=== PATIENT | male | born 1955 | race Caucasian/White ===

== ENCOUNTER 2017-08-25 17:30 | Inpatient (IN) | END 2017-10-26 19:50 | DRG 559 ==

== ENCOUNTER → 2018-06-21 | Outpatient (CLI) | payer MEDICARE, OTHER ==
[~2018-06-21] MED LIST: CHOL100062 PO; DOXY100T2 PO; LOSA100T15 PO; PNEU0.5D IM; TAMS-14 PO; TRAM50TA2 PO
--- NOTE | 2018-06-24 08:15 | RADRPT ---
PROCEDURE: XR LEFT FEMUR. CLINICAL INDICATION: Pain. TECHNIQUE: AP and lateral views of the left femur were obtained. COMPARISON: No prior studies are available for comparison. FINDINGS: The patient has total knee replacement and there is a dislocation at the level of the knee. There is anterior dislocation of the femur and patella with respect to the tibia. No femoral shaft fracture is seen. There is mild preexisting arthrosis of the left hip joint. No evidence for proximal femoral fr acture. No displaced distal femoral fractures seen. IMPRESSION: 1. Anterior dislocation of the femur at the level of the total knee replacement. 2. No displaced fractures seen. RPTAT: XX .Meliton Mackenzie MD, MD Date Time Electronically viewed and signed by .Meliton Mackenzie MD, on 06/24/2018 08:15 .T/
--- NOTE | 2018-06-24 08:16 | RADRPT ---
PROCEDURE: XR LEFT TIBIA AND FIBULA. CLINICAL INDICATION: Pain. Injury. TECHNIQUE: Two views of the left tibia and fibula are available for review. COMPARISON: None available FINDINGS: There is anterior dislocation of the femur at the level of the knee replacement. The patella is dislo cated/subluxed laterally. No tibial or fibular shaft fracture is seen. No bone erosive changes are se en. IMPRESSION: 1. Anterior dislocation of the femur at the level of the knee replacement and the patella is disloca taye/subluxed laterally. 2. No evidence for tibial or fibular fracture. RPTAT: XX .Meliton Mackenzie MD, MD Date Time Electronically viewed and signed by .Meliton Mackenzie MD, on 06/24/2018 08:16 .T/
== END | disposition home or self-care (01) ==
LOC: HKI 14:15
PROVIDERS: ATTEND Orthopaedic Surgery Adult Reconstructive Orthopaedic Surgery
DX: M79.652 Pain in left thigh (principal)
CPT/HCPCS: 73552

== ENCOUNTER 2018-06-29 05:53 | Inpatient (IN) | payer MEDICARE, OTHER ==
[~2018-06-29] VITALS: Ht 182.9 cm; Wt 104.0 kg
[2018-06-29] VITALS (31 sets, daily range): BP systolic 72–137; BP diastolic 44–81; PULSE 63–120; RESP 12–22; Ht 182.9 cm; Wt 104.0 kg
[~2018-06-29 05:53] MED LIST changes: -CHOL100062 PO; -LOSA100T15 PO; -PNEU0.5D IM; -TAMS-14 PO; -TRAM50TA2 PO
[2018-06-29] MEDS ORDERED: TOBRAMYCIN 1.2 GM POWDER ONE (06:53)
[2018-06-29] MEDS ORDERED: MINERAL OIL LIGHT 10 ML VIAL ONE ×2 (06:53→11:19)
[2018-06-29] MEDS ORDERED: METHYLENE BLUE 50 MG/10 ML AMPUL ONE (06:53)
[2018-06-29] MEDS ORDERED: SEVOFLURANE 15 MIN ONE (07:00)
[2018-06-29] MEDS ORDERED: CEFAZOLIN 1 GM INJ ONE (07:00)
[2018-06-29] MEDS ORDERED: ROCURONIUM 50 MG INJ ONE ×2 (07:00→07:26)
[2018-06-29] MEDS ORDERED: LOSA100T15 PO (07:12)
[2018-06-29] MEDS ORDERED: TAMS-14 PO (07:12)
[2018-06-29] MEDS ORDERED: TRAM50TA2 PO (07:12)
[2018-06-29] MEDS ORDERED: CHOL100062 PO (07:13)
[2018-06-29] MEDS ORDERED: PNEU0.5D IM (07:13)
--- NOTE | 2018-06-29 07:21 | HPN ---
Date/Time of Note Date/Time of Note DATE: 06/29/18 TIME: 07:17 Interval H&P Admission Note Pt. seen H&P reviewed: No system changes Patient denies fever, chills, shortness of breath, chest pain, nausea/vomiting, constipation, diarrhea, numbness, and tingling. Reviewed the benefits and risks previously signed on the consent form in clinic. Especially reviewed risks of neurovascular injury given chronic dislocation. This includes need for vascular repair, loss of limb, and . MUSCULOSKELETAL: Left extremity There are superficial scratches over the anterior knee. There is no signs of superficial infection. There is gross deformity of the knee secondary to dislocation. Significant swelling. No significant erythema. Today the patient has slightly decreased sensation to light touch over the sup erficial and deep peroneal nerve distribution. Sensation intact to light touch in a sural, saphenous, medial and lateral plantar nerve distribution. Motor is intact, patient able to dorsiflex and plantarflex ankle and extend and flex great toe. Dorsalis Pedis pulse +2, Brisk capillary refill. Compartments are soft. Calves non-tender to palpation bilaterally. CHERELLE MERRITT MD June 29, 2018 07:21
[2018-06-29] MEDS: LACTATED RINGER'S 1,000 ML IV SCH ×4 (07:26→17:45)
[2018-06-29] MEDS ORDERED: MIDAZOLAM 1 MG/ML 2 ML INJ ONE (07:26)
[2018-06-29] MEDS ORDERED: LIDOCAINE 100 MG SYRINGE ONE (07:26)
[2018-06-29] MEDS ORDERED: FENTAnyl 50 MCG/ML VIAL ONE ×2 (07:26→11:14)
[2018-06-29] MEDS ORDERED: PROPOFOL 20 ML ONE (07:26)
[2018-06-29] MEDS ORDERED: morphine SULFATE/PF (10 MG/10 ML) INJ ONE (07:26)
[2018-06-29] MEDS ORDERED: EPHEDrine 25 MG/5 ML SYG ONE (07:26)
[2018-06-29] MEDS ORDERED: VANCOMYCIN HCL 1.5 GM in SOD CHLORIDE 0.9% 250 ML IVPB SCH (07:30)
[2018-06-29] MEDS ORDERED: TRANEXAMIC ACID 1GM/100ML(PMX) 100 ML AT CLOSING IVPB ONE (07:30)
[2018-06-29] MEDS ORDERED: CELECOXIB 200 MG CAP PO ONE (07:30)
[2018-06-29] MEDS ORDERED: ACETAMINOPHEN 500 MG TAB PO ONE (07:30)
[2018-06-29] MEDS ORDERED: TRANEXAMIC ACID 1GM/100ML(PMX) 100 ML PRE-OP IVPB ONE (07:30)
[2018-06-29] MEDS ORDERED: ONDANSETRON 4 MG INJ IV ONE (07:30)
[2018-06-29] MEDS ORDERED: LANSOPRAZOLE 30 MG CAP PO ONE (07:30)
[2018-06-29] MEDS ORDERED: TRANEXAMIC ACID 1GM/100ML(PMX) 200 ML ONE (08:21)
--- NOTE | 2018-06-29 09:55 | PREAC ---
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) Musculoskeletal: Osteoarthritis Surgery & Anesthesia Issues Significant blood loss, No known issue Meds Anticoagulation: No Beta Kaylen within 24 hr: No Reason Beta Kaylen not given: Other (not ordered by PMD) Reported Medications Pneumoc 13-June Conj-Dip Crm/Pf* (Prevnar 13*) 0.5 Ml Disp.syrin, 0.5 ML IM, SYR 06/29/18 Cholecalciferol* (Vitamin D3*) 1,000 Unit Tablet, 1000 UNIT PO DAILY, TAB 06/29/18 Tramadol HCl (Tramadol HCl) 50 Mg Tablet, 50 MG PO Q6H PRN for PAIN, #120 TAB 06/29/18 Losartan Potassium* (Losartan Potassium*) 100 Mg Tablet, 100 MG PO DAILY, TAB 06/29/18 Tamsulosin Hcl* (Flomax*) 0.4 Mg Cap.er.24h, 0.4 MG PO DAILY, CAP 06/29/18 Discontinued Scripts Doxycycline* (Vibramycin*) 100 Mg Tab, 100 MG PO BID for 90 Days, #1 TAB Prov:YOLANDA SAMAYOA MD 10/26/17 Current Medications Vancomycin HCl 1.5 gm/Sodium Chloride 250 ml @ 83.333 mls/ hr PREOP IVPB Last administered on 06/29/18at 07:26; Admin Dose 83.333 MLS/HR; Start 06/29/18 at 07:30; Stop 06/29/18 at 10:29 Lactated Ringer's 1,000 ml @ 125 mls/hr Q8H IV Last administered on 06/29/18at 07:26; Admin Dose 125 MLS/HR; Start 06/29/18 at 07:30; Stop 06/29/18 at 16:00 Meds reviewed: Yes Allergies Coded Allergies: No Known Allergy (Unverified , 06/29/18) Allergies Reviewed: Yes Labs/Studies Labs Reviewed: Reviewed by anesthesiologist Blood Bank Test 06/29/18 06:16 Antibody Screen NEGATIVE Blood Product Summary Counts Blood Type O POSITIVE Crossmatch Red Blood Cells test: N/A Studies: Other (Baldomero Varela MD cleard pt > Ekg unremarkable) Pre-procedure Exam Last vitals Vital Signs Date Temp Pulse Resp B/P (MAP) Pulse Ox O2 O2 Flow FiO2 Time Delivery Rate 06/29/18 96.9 63 18 137/71 98 Room Air 07:00 (93) Airway: Adequate mouth opening, Adequate thyromental dist Mallampati: Mallampati III Teeth: Abnormal (many missin. slight movemint patient made aware " maybe from patials used " ) Lung: Normal Heart: Normal ASA Physical Status ASA physical status: 3 Emergency: None Planned Anesthetic General/MAC: ETT, Controlled Hypotension (Dr. Hernadez says no touniquet is possible . to minimize bloos loss . Plan to Maintain adequate mean) Nerve block: Other (Spinal narcotic for post op pain) Planned Pain Management Sub-arachniod narcotics (as planned and discussed with Dr. Hernadez IV med if needed), Parenteral pain med Pre-operative Attestations Prior to commencing anesthesia and surgery, the patient was re-evaluated, there was verification of: *The patient's identity *The results of appropriate recent lab work and preoperative vital signs *The above evaluation not changing prior to induction *Anesthetic plan, risk benefits, alternative and complications discussed with patient/family; questions answered; patient/family understands, accepts and wishes to proceed. MIKA FAULKNER MD June 29, 2018 09:31
[2018-06-29] MEDS: VANCOMYCIN 1 GM INJ ONE ×2 (10:21→11:59)
[2018-06-29] MEDS: TOBRAMYCIN 1.2 GM POWDER ONE ×2 (10:22→11:59)
[2018-06-29] MEDS ORDERED: MIDAZOLAM 1 MG/ML 2 ML INJ IV PRN ×2 (10:30→11:00)
[2018-06-29] MEDS ORDERED: EPHEDrine 25 MG/5 ML SYG IV PRN (10:30)
[2018-06-29] MEDS ORDERED: ALBUTEROL 0.083% (NEB) 2.5 MG/3 ML AMP HHN PRN (10:30)
[2018-06-29] MEDS ORDERED: LABETALOL HCL 20MG INJ IV PRN (10:30)
[2018-06-29] MEDS ORDERED: morphine 2 MG INJ IV PRN ×2 (10:30→11:00)
[2018-06-29] MEDS ORDERED: ONDANSETRON 4 MG INJ IV PRN ×2 (10:30→11:00)
[2018-06-29] MEDS ORDERED: DIPHENHYDRAMINE 50 MG INJ IV PRN ×3 (10:30→14:30)
[2018-06-29] MEDS ORDERED: ALBUMIN HUMAN 5% 250 ML IV PRN (10:30)
[2018-06-29] MEDS ORDERED: MEPERIDINE 25 MG INJ IV PRN (10:30)
[2018-06-29] MEDS ORDERED: hydrALAzine 20 MG INJ IV PRN (10:30)
[2018-06-29] MEDS ORDERED: FENTAnyl 50 MCG/ML VIAL IV PRN (10:30)
[2018-06-29] MEDS ORDERED: METOCLOPRAMIDE 10 MG INJ IV PRN (10:30)
[2018-06-29] MEDS ORDERED: HYDROmorphONE 1 MG/5 ML IV SYRINGE IV PRN ×3 (10:30)
[2018-06-29] MEDS ORDERED: LEVALBUTEROL (NEB) 0.63 MG/3 ML AMP HHN PRN (10:30)
[2018-06-29] MEDS ORDERED: ONDANSETRON 4 MG INJ ONE (13:23)
[2018-06-29] MEDS ORDERED: DEXAMETHASONE 4 MG/ML 5 ML INJ ONE (13:23)
[2018-06-29] MEDS ORDERED: ESMOLOL 10 ML ONE (13:34)
[2018-06-29] MEDS ORDERED: BETHANECHOL 25 MG TAB PO PRN (14:30)
[2018-06-29] MEDS ORDERED: DOCUSATE SODIUM 100 MG CAP PO ONE (14:30)
[2018-06-29] MEDS ORDERED: NACL 0.9% 3 ML SYG IV SCH (14:30)
[2018-06-29] MEDS ORDERED: SENNA/DOCUSATE NA (8.6MG/50MG) TAB PO PRN (14:30)
[2018-06-29] MEDS ORDERED: NA PHOSPHATE/BIPHOS 133 ML ENEMA PR PRN (14:30)
[2018-06-29] MEDS ORDERED: BISACODYL 10 MG SUPP PR PRN (14:30)
[2018-06-29] MEDS ORDERED: NALOXONE (0.4 MG/ML) INJ IV PRN (14:30)
[2018-06-29] MEDS ORDERED: MAGNESIUM HYDROXIDE 30ML CUP PO PRN (14:30)
[2018-06-29] MEDS ORDERED: HYDROmorphONE 1 MG/ML SYG IV PRN (14:30)
[2018-06-29] MEDS ORDERED: oxyCODONE 5 MG TAB PO PRN (14:30)
--- NOTE | 2018-06-29 14:39 | PAC ---
Date/Time of Note Date/Time of Note DATE: 06/29/18 TIME: 14:38 Post-Anesthesia Notes Post-Anesthesia Note Last documented vital signs Vital Signs Date Temp Pulse Resp B/P (MAP) Pulse Ox O2 O2 Flow FiO2 Time Delivery Rate 06/29/18 98.5 14:10 06/29/18 63 18 137/71 98 Room Air 07:00 (93) Activity: WNL Respiratory function: WNL Cardiovascular function: WNL Mental status: Baseline Pain reasonably controlled: Yes Hydration appropriate: Yes Nausea/Vomiting absent: Yes MIKA FAULKNER MD June 29, 2018 14:39
[2018-06-29] MEDS ORDERED: ALBUMIN HUMAN 5% 250 ML IV ONE (15:00)
[2018-06-29] MEDS ORDERED: SOD CHLORIDE 0.9% 500 ML IV ONE (16:30)
--- NOTE | 2018-06-29 16:37 | HP ---
Date/Time of Note Date/Time of Note DATE: 06/29/18 TIME: 16:33 Assessment/Plan VTE Prophylaxis Risk score (from Ns)>0 risk: 2 SCD applied (from Ns): Yes Pharmacological prophylaxis: NA/contraindicated Pharm contraindication: surgical contra Lines/Catheters IV Catheter Type (from Nrsg): Peripheral IV Assessment/Plan Hospital Course 1. History of left knee replacement with subsequent septic knee status post total revision postop day 0 Broad-spectrum coverage with vancomycin and Zosyn ID consultation tomorrow per Ortho Pain control 2. Hypertension Continue home meds 3. BPH Continue home meds 4. History of debility Patient resides in a skilled facility Prophylaxis: Per Ortho Result Diagram: 06/29/18 1532 Results 24hrs Laboratory Tests Test 06/29/18 06:16 06/29/18 15:32 Erythrocyte Sedimentation Rate 9 C-Reactive Protein 0.8 Hemoglobin 11.3 L Hematocrit 35.2 L HPI/ROS Admit Date/Time Admit Date/Time June 29, 2018 at 05:53 Hx of Present Illness Patient is 63-year-old male with a history of BPH, hypertension, debility and left knee replacement with subsequent left knee septic joint. Patient was hospitalized here in the past and was treated conservatively with antibiotics and completed 4-week course. At that time ID recommended lifelong suppression with doxycycline twice daily. Patient was subsequently arranged for outpatient follow-up with Ortho has now undergone left knee revision. Patient has no compl aints at this time. ROS Constitutional: no complaints, improved Eyes: no complaints ENT: no complaints Respiratory: no complaints Cardiovascular: no complaints Gastrointestinal: no complaints Genitourinary: no complaints Musculoskeletal: no complaints Skin: no complaints Neurologic: no complaints Endocrine: no complaints Lymphatic: no complaints Psychological: no complaints, nl mood/affect Immunologic: no complaints PMH/Family/Social Past Medical History As per HPI Medications Current Medications Morphine Sulfate (morphine) 2 mg PACU PRN IV PAIN LEVEL 1-3; Start 06/29/18 at 10:30; Stop 06/29/18 at 17:00 Hydromorphone HCl (Dilaudid) 0.2 mg PACU PRN IV MILD PAIN 1-3; Start 06/29/18 at 10:30; Stop 06/29/18 at 17:00 Hydromorphone HCl (Dilaudid) 0.4 mg PACU PRN IV MOD PAIN 4-6; Start 06/29/18 at 10:30; Stop 06/29/18 at 17:00 Hydromorphone HCl (Dilaudid) 0.6 mg PACU PRN IV SEVERE PAIN 7-10 Last a dministered on 06/29/18at 14:36; Admin Dose 0.6 MG; Start 06/29/18 at 10:30; Stop 06/29/18 at 17:00 Fentanyl (Sublimaze) 50 mcg PACU ORDER PRN IV MOD PAIN 4-6 Last administered on 06/29/18at 14:36; Admin Dose 50 MCG; Start 06/29/18 at 10:30; Stop 06/29/18 at 17:00 Ondansetron HCl (Zofran Inj) 4 mg PACU ORDER PRN IV NAUSEA/VOMITING Last administered on 06/29/18at 14:35; Admin Dose 4 MG; Start 06/29/18 at 10:30; Stop 06/29/18 at 17:00 Metoclopramide HCl (Reglan) 10 mg PACU ORDER PRN IV NAUSEA/VOMITING; Start 06/29/18 at 10:30; Stop 06/29/18 at 17:00 Labetalol HCl (Labetalol) 5 mg PACU ORDER PRN IV HIGH BLOOD PRESSURE; Start 06/29/18 at 10:30; Stop 06/29/18 at 17:00 Hydralazine HCl (Apresoline) 5 mg PACU ORDER PRN IV HIGH BLOOD PRESSURE; Start 06/29/18 at 10:30; Stop 06/29/18 at 17:00 Ephedrine Sulfate 5 mg PACU ORDER PRN IV BLOOD PRESSURE SUPPORT Last administered on 06/29/18at 14:49; Admin Dose 5 MG; Start 06/29/18 at 10:30; Stop 06/29/18 at 17:00 Albumin Human 250 ml @ 750 mls/hr PACU ORDER PRN IV BP SUPPORT Last administered on 06/29/18at 14:51; Admin Dose 750 MLS/HR; Start 06/29/18 at 10:30; Stop 06/29/18 at 17:00 Albuterol (Proventil 0.083% (Neb)) 2.5 mg PACU ORDER PRN HHN .WHEEZING; Start 06/29/18 at 10:30; Stop 06/29/18 at 17:00 Levalbuterol (Xopenex Neb) 0.63 mg PACU ORDER PRN HHN .WHEEZING; Start 06/29/18 at 10:30; Stop 06/29/18 at 17:00 Meperidine HCl (Demerol) 25 mg PACU ORDER PRN IV .RIGORS; Start 06/29/18 at 10:30; Stop 06/29/18 at 17:00 Diphenhydramine HCl (Benadryl) 25 mg PACU ORDER PRN IV .PRURITUS Last administered on 06/29/18at 14:39; Admin Dose 25 MG; Start 06/29/18 at 10:30; Stop 06/29/18 at 17:00 Midazolam HCl (Versed) 0.5 mg PACU ORDER PRN IV .ANXIETY; Start 06/29/18 at 10:30; Stop 06/29/18 at 17:00 Morphine Sulfate (morphine) 1 mg Q30MIN PRN IV SEVERE PAIN LEVEL 7-10; Start 06/29/18 at 11:00 Diphenhydramine HCl (Benadryl) 25 mg Q4H PRN IV PRURITUS; Start 06/29/18 at 11:00 Ondansetron HCl (Zofran Inj) 4 mg Q6H PRN IV NAUSEA AND/OR VOMITING; Start 06/29/18 at 11:00 Lactated Ringer's 1,000 ml @ 80 mls/hr [id number] IV Last administered on 06/29/18at 15:59; Admin Dose 80 MLS/HR; Start 06/29/18 at 14:07 IV Flush (NS 3 ml) 3 ml PER PROTOCOL IV ; Start 06/29/18 at 14:30 Oxycodone HCl (Roxicodone) 15 mg Q4H PRN PO .PAIN; Start 06/29/18 at 14:30 Oxycodone HCl (Roxicodone) 10 mg Q4H PRN PO .PAIN; Start 06/29/18 at 14:30 Oxycodone HCl (Roxicodone) 5 mg Q4H PRN PO .PAIN; Start 06/29/18 at 14:30 Hydromorphone HCl (Dilaudid) 1 mg Q3H PRN IV .BREAKTHROUGH PAIN; Start 06/29/18 at 14:30 Acetaminophen (Tylenol Tab) 1,000 mg Q8 PO ; Start 06/29/18 at 22:00 Ondansetron HCl (Zofran Inj) 4 mg Q4H PRN IV NAUSEA/VOMITING; Start 06/30/18 at 14:30 Vancomycin HCl 250 ml @ 125 mls/hr Q12H IVPB ; Start 06/29/18 at 18:00 Gabapentin (Neurontin) 300 mg QHS PO ; Start 06/29/18 at 21:00 Pantoprazole (Protonix Tab) 40 mg DAILY@06 PO ; Start 07/01/18 at 06:00 Docusate Sodium (Colace) 200 mg BID PO ; Start 06/30/18 at 09:00; Stop 07/03/18 at 08:59 Simethicone (Mylicon) 80 mg TID PRN PO .GAS; Start 06/29/18 at 14:30 Senna/Docusate Sodium (Senokot-S) 2 tab BID PRN PO .CONSTIPATION; Start 06/29/18 at 14:30 Magnesium Hydroxide (Milk Of Mag) 30 ml HS PRN PO .CONSTIPATION; Start 06/29/18 at 14:30 Bisacodyl (Dulcolax Supp) 10 mg DAILY PRN MT .CONSTIPATION; Start 06/29/18 at 14:30 Sodium Biphosphate/ Sodium Phosphate (Fleet Enema) 133 ml DAILY PRN MT .CON STIPATION; Start 06/29/18 at 14:30 Diphenhydramine HCl (Benadryl) 25 mg Q4H PRN IV .ITCHING; Start 06/29/18 at 14:30 Naloxone HCl (Narcan) 0.2 mg Q2M PRN IV .RESP RATE; Start 06/29/18 at 14:30 Bethanechol Chloride (Urecholine) 25 mg URINARY CATH D/C PRN PO UNABLE TO VOID; Start 06/29/18 at 14:30 Aspirin (Halfprin) 81 mg BID PO ; Start 06/30/18 at 09:00 Piperacillin Sod/ Tazobactam Sod 100 ml @ 200 mls/hr Q8 IVPB ; Start 06/29/18 at 22:00 Midazolam HCl (Versed) 2 mg ONCE PRN IV if anxious; Start 06/29/18 at 11:00; Stop 06/30/18 at 10:59 Sodium Chloride 500 ml @ 500 mls/hr Q1H ONCE IV ; Start 06/29/18 at 16:30; Stop 06/29/18 at 17:29 Coded Allergies: No Known Allergy (Unverified , 06/29/18) Past Surgical History Left knee surgery Family History Significant Family History: no pertinent family hx, other Social History Alcohol Use: rarely Smoking Status: Former smoker Drug Use: none Exam/Review of Systems Vital Signs Vitals Vital Signs Date Temp Pulse Resp B/P (MAP) Pulse Ox O2 O2 Flow FiO2 Time Delivery Rate 06/29/18 Nasal 2.0 15:11 Cannula 06/29/18 104 14 93/65 (74) 100 15:08 06/29/18 98.5 14:10 Intake and Output 06/28/18 06/28/18 06/29/18 1515:00 23:00 07:00 IntakeIntake Total 1200 ml BalanceBalance 1200 ml Exam Constitutional: alert, oriented Respiratory: clear to auscultation Cardiovascular: regular rate and rhythm Gastrointestinal: soft; No distended Musculoskeletal: No nl extremities to inspection CHRISTIANO RAYGOZA June 29, 2018 16:37
--- NOTE | 2018-06-29 17:35 | OPR ---
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 Radical irrigation and debridement 25 x 20 cm. Debridement of skin, subcutan eous tissue, muscle, fascia, bone. Placement of static antibiotic spacer Placement of bioabsorbable antibiotic beads Application of negative pressure dressing. Surgeon see signature line Flare Stitcher joyce encinas Anesthesia Type: general, spinal Estimated Blood Loss: other (400-600 mL) Transfusion none Specimen All specimens sent for aerobic, anaerobic, fungal, and AFB. All cultures will be held for at least 2 weeks. 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 His total knee arthroplasty was done in December 2016. Several months after that he began having pain and difficulty with his knee. Per outside records he had a significant deformity and inability to bear weight at least one year ago. He was seen at [facility] in August 2017 where he was diagnosed with a chronic infected dislocated total knee arthroplasty. At that time it was not involved with his care and he was discharged to follow up with an appropriate surgeon. The patient was discharged on IV antibiotics and then transition to oral doxycycline. The patient then presented to my clinic a few months ago where I saw him for the first time. I discussed multiple treatment options with him including continued chronic suppression and use a wheelchair, stage I revision with static spacer, above- knee amputation. I recommended a stage I revision with static spacer. At that time the patient had significant dental decay and required multiple extractions prior to planned stage I revision. Once that was complete the patient return to my clinic to plan for the surgery. A lengthy discussion ensued, where the operative procedure was explained using diagrams and or three-dimensional models. The rehabilitation, the potential risks, benefits and alternatives were discussed at length. Specific risks discussed included but were not limited to excessive blood loss and the need for transfusion and therefore the risk of transmissible disease or transfusion reaction, deep infection and the potential need for repetitive debridements, implant removal, long-term antibiotic therapy, possibly requiring deep venous access, extensor mechanism complications, including subluxation or dislocation, disruption of the quadriceps or patellar tendon, fracture of the patella or avulsion of the tibial tuberosity, femoral, tibial or fibular fracture and the need for further surgery for fixation, neurovascular injury with temporary or permanent numbness, tingling, weakness or paralysis, arterial injury requiring surgery including possible amputation, deep venous thrombosis, pulmonary embolism and , persistent pain, weakness, or limp, late aseptic loosening and the need for revision, polyethylene wear-induced osteolysis and related problems, post-operative stiffness requiring closed manipulation, and finally, a wide variety of unanticipated medical problems. I especially stressed to the patient he was a high risk for neurovascular injury given his chronic disl ocation. I also discussed with him that performing a stage I revision did not guarantee by any means that he would be a candidate for a second stage revision. Most likely if he was to have a second stage revision he would go on to a fusion. The opportunity to ask questions and address any concerns was provided. He understood and agreed to proceed with the surgery. Procedure in detail: The patient was brought to the operating room. He was transferred from the hospital bed to the operating table in supine position. All bony problems well padded. Patient was then given a spinal and intubated by anesthesia. At this time a thorough vascular exam was performed. The dorsalis pedis pulse was palpable with 2+ pulse. Both the dorsalis pedis and posterior tibialis pulse was triphasic on Doppler examination. A timeout was performed confirming the patient's name, medical record number, diagnosis, procedure to be performed, and laterality of procedure. At this time the patient was fully paralyzed by anesthesia. An attempted reduction of the dislocated total knee arthroplasty was performed under fluoroscopy. After multiple attempts including extended periods of manual traction the reduction failed. At this time it was decided the best way to proceed was to begin the surgery. The left lower extremities prepped and draped in normal sterile fashion. A tourniquet was placed prior to draping. This was not inflated at any time during the case. The knee was flexed to about 60 degrees. A large bump was placed under the proximal tibia and knee to prevent further displacement of the dislocated knee. The previous incision was utilized extending both proximally and distally several centimeters. Full-thickness skin flaps were developed over the extensor mechanism. The patella was dislocated laterally. The edges of the patella was palpated and marked out. At this time attempted aspiration of the joint was performed this was a dry tap. Therefore a medial parapatellar arthrotomy was performed. Secondary to significant deformation of the joint and tissues care was taken not to disrupt the extensor mechanism. Once the joint was entered there was a small to moderate amount of fluid. No grossly purulent fluid. The tissues appeared quite clean however were hyperemic. The tibia was 100% dislocated posteriorly and it was shortened approximately several centimeters. The entire previous joint space was filled with fibrous scar. The fibrous scar was carefully excised. Care was taken to slowly release the joint to allow reduction. Extreme care was taken posteriorly as the popliteal artery was likely to be scarred in tissue and not in its normal anatomical position secondary to chronic dislocation. At this time both the medial and lateral gutters were debrided and large amounts of fibrous scar tissue was excised both medially and laterally. Synovial tissue was sent for culture. There is no andrew ss purulence. There is no grossly necrotic tissue. Once the joint was free and able to be reduced the knee was further flexed in order to expose and visualize the implant cement and bone interface of the femoral component. This was then disrupted with a microsagittal saw followed by flexible osteotomes. This was then removed with ease with the Fluid femoral impactor. There was minimal bone loss. Superficial femoral tissue was sent for culture. Attention then turned towards the tibial side. Care was taken with a blunt retractor placed posterior to the tibia to translated anteriorly. The polyethylene was easily explanted with an osteotome. The bone cement interface was disrupted with a microsagittal saw followed by flexible osteotome. The Kelli impactor was used to explant the tibial tray. This was done with minimal bone loss. Superficial tibial tissue was sent for culture. At this point further debridement of the entire knee joint was performed using both sharp excision as well as the versa jet. Once this was completed attention turned towards the femoral and tibial canals. Deep culture from the femoral canal was sent for culture. The intramedullary canals were sequentially reamed up to a size 15 with a depth of at least 175 mm. At this time the joint was closely irrigated with over 9 L of normal saline as well as hydrogen peroxide. On the back table 2 packs of polymethyl methacrylate was mixed with 4 g of vancomycin and 4.8 g of tobramycin. This was also mixed with couple drops of methylene blue. This was placed in a cement gun. A prepared 40 [place] chest tube with sterile mineral oil was on the back table. Cement was pressurized in the chest tube a 7 x 300 mm [place] humeral nail was placed within the chest tube. An attempt was made to have the nail centralized. This was done by along the chest tube constantly until the cement hardened. Once cement was hardened a 10 blade was used to cut open the chest tube longitudinally. The nail came out easily. The midpoint of the nail was marked with a marking pen. At this time the nail was then inserted up the femoral canal. And the knee joint was reduced and the antibiotic coated nail was then placed within the tibia stopping at the previously marked midpoint of the nail. The knee was held in full extension and in neutral mechanical alignment. At this time 2 more packs of polymethyl methacrylate with 6 g of vancomycin and 7.2 g of tobramycin and several drops of methylene blue was mixed. Once at the proper consistency this was placed in both the metaphysis of the femur and tibia and the remainder was used to make a spacer block in the joint space. The knee was held in full extension and a neutral mechanical alignment during this process. The cement hardened. Of note in total there was approximately 20 mL of stimulan calcium sulfate beads placed with in the intramedullary canals and the affected joint space. This contained 2 g of vancomycin and 2.4 g of tobramycin. The patella was still significantly lateralized. It was felt that would be better to have the patella essentials possible for future reconstruction as well as comfort for the patient. Therefore a lateral release was performed. This significantly improved the position of the patella. A medium Hemovac drain was placed exiting laterally. The arthrotomy was closed with #1 strata fix. The subcutaneous tissues were closed with 2-0 PDS in simple interrupted fashion. Skin was closed with kamla. A Jaci wound VAC was placed over the wound. The leg was wrapped in soft roll and bios and a Polar Care pack. The knee was placed in a knee immobilizer. Disposition: Patient was extubated and transferred to PACU in stable condition. He will continue to receive vancomycin and Zosyn [id number] until cultures return. At that time and blocks will be tailored towards cultures. Infectious disease will be consulted. He will be allowed to partially weight-bear on his left lower extremity. No flexion is allowed as he is essentially fused. He is to wear the knee immobilizer except for dressing changes and hygiene. He will be on DVT prophylaxis aspirin 81 mg twice a day for 6 weeks. He will likely be in the hospital for 5 days waiting for cultures. CHERELLE MERRITT MD June 29, 2018 16:58
[2018-06-29] MEDS: VANCOMYCIN 1 GM (PMX) 250 ML IVPB SCH (18:32)
[2018-06-29] MEDS: oxyCODONE 5 MG TAB PO PRN (18:48)
[2018-06-29] MEDS: TAMSULOSIN (SR) 0.4 MG CAP PO SCH (21:48)
[2018-06-29] MEDS: GABAPENTIN 300 MG CAP PO SCH (21:48)
[2018-06-29] MEDS: PIPER-TAZO 3.375 GM IV (PMX) 100 ML IVPB SCH (21:48)
[2018-06-29] MEDS: ACETAMINOPHEN 500 MG TAB PO SCH (21:49)
[2018-06-29] MEDS ORDERED: CEPASTAT LOZENGE MT PRN (23:30)
[2018-06-30] VITALS (15 sets, daily range): BP systolic 81–124; BP diastolic 42–58; PULSE 78–99; RESP 17–18
[2018-06-30] MEDS: PIPER-TAZO 3.375 GM IV (PMX) 100 ML IVPB SCH ×4 (06:02→22:48)
[2018-06-30] MEDS: ACETAMINOPHEN 500 MG TAB PO SCH ×3 (06:02→22:47)
[2018-06-30] MEDS: VANCOMYCIN 1 GM (PMX) 250 ML IVPB SCH ×2 (06:50→18:12)
[2018-06-30] MEDS: DOCUSATE SODIUM 100 MG CAP PO SCH ×2 (08:14→20:12)
[2018-06-30] MEDS: CHOLECALCIFEROL 1,000 UNIT TAB PO SCH (08:14)
[2018-06-30] MEDS: oxyCODONE 5 MG TAB PO PRN ×2 (08:14→20:13)
[2018-06-30] MEDS: ASPIRIN (EC) 81 MG TAB PO SCH ×2 (08:14→20:12)
[2018-06-30] MEDS: LOSARTAN 50 MG TAB PO SCH (08:15)
--- NOTE | 2018-06-30 08:39 | PN ---
Date/Time of Note Date/Time of Note DATE: 06/30/18 TIME: 08:36 Assessment/Plan Lines/Catheters IV Catheter Type (from Nrsg): Peripheral IV Bobo in Place (from Nrs): Yes Assessment/Plan Chief Complaint/Hosp Course POD#1 s/p stage I revision for chronically dislocated infected left patient has a static spacer TKA. Patient will need 6 weeks of IV antibiotics and a PICC line. -Post op H&H stable -VAC drain: Measurable every 8 hours. Call if over 200 mL's per shift -PT/OT -Joints pain control protocol -DVT prophylaxis: SCD's, [] -Weight bearing status: partial weightbearing -Knee immobilizer at all times except for dressing changes and hygiene. No rang e of motion of the knee -Post-op XR ordered -Abx: Continue vancomycin and Zosyn until cultures return -Will consult infectious disease -Diet: ADAT -Bobo: DC today -Discharge planning consult Planned Discharge Date: [] Discharge to [] Subjective 24 Hr Interval Summary Patient doing well No acute events overnight Pain is well controlled Exam/Review of Systems Vital Signs Vitals Vital Signs Date Temp Pulse Resp B/P (MAP) Pulse Ox O2 O2 Flow FiO2 Time Delivery Rate 06/30/18 98.1 88 17 114/58 97 02:15 (76) 06/29/18 Nasal 3.0 20:00 Cannula Intake and Output 06/29/18 06/29/18 06/30/18 1515:00 23:00 07:00 IntakeIntake Total 100 ml 1280 ml 700 ml OutputOutput Total 600 ml 530 ml 1890 ml BalanceBalance -500 ml 750 ml -1190 ml Exam Free Text/Dictation Left lower extremity: Hemovac drain to self suction. Knee immobilizer in place Dressing: clean, dry, and intact, no erythema Sensation intact to light touch in a sural, saphenous, deep peroneal, superficial peroneal, medial and lateral plantar nerve distribution. Motor is intact, patient able to dorsiflex and plantarflex ankle and extend and flex great toe. Dorsalis Pedis pulse +2, Brisk capillary refill. Compartments are soft. Calves non-tender to palpation bilaterally. Results Result Diagram: 06/30/18 0447 06/30/18 0447 CHERELLE MERRITT MD June 30, 2018 08:39
--- NOTE | 2018-06-30 12:27 | PN ---
Date/Time of Note Date/Time of Note DATE: 06/30/18 TIME: 12:26 Assessment/Plan VTE Prophylaxis Risk score (from Ns)>0 risk: 13 SCD applied (from Nsg): Yes Pharmacological prophylaxis: other Lines/Catheters IV Catheter Type (from Nrsg): Peripheral IV Assessment/Plan Hospital Course 1. History of left knee replacement with subsequent septic knee status post total revision postop day 1 Broad-spectrum coverage with vancomycin and Zosyn ID consultation per Ortho Pain control PT per Ortho 2. Hypertension Continue home meds 3. BPH Continue home meds 4. History of debility Patient resides in a skilled facility Prophylaxis: Aspirin Result Diagram: 06/30/18 0447 06/30/187 Results 24hrs Laboratory Tests Test 06/29/18 15:32 06/30/18 04:47 06/30/18 06:50 Hemoglobin 11.3 L 9.2 L Hematocrit 35.2 L 28.6 L White Blood Count 13.6 #H Red Blood Count 3.11 #L Mean Corpuscular Volume 92.0 Mean Corpuscular Hemoglobin 29.6 Mean Corpuscular 32.2 Hemoglobin Concent Red Cell Distribution Width 13.5 Platelet Count 191 # Mean Platelet Volume 9.8 Immature Granulocytes % 0.600 H Neutrophils % 82.6 H Lymphocytes % 6.6 L Monocytes % 10.1 Eosinophils % 0.0 Basophils % 0.1 Nucleated Red Blood Cells % 0.0 Immature Granulocytes # 0.080 H Neutrophils # 11.2 H Lymphocytes # 0.9 Monocytes # 1.4 H Eosinophils # 0.0 Basophils # 0.0 Nucleated Red Blood Cells # 0.0 Sodium Level 137 Potassium Level 4.9 Chloride Level 104 Carbon Dioxide Level 26 Anion Gap 7 Blood Urea Nitrogen 12 Creatinine 0.73 Est Glomerular Filtrat > 60 Rate mL/min Glucose Level 125 Calcium Level 8.6 Lab Scanned Report REFERENCE LAB Subjective 24 Hr Interval Summary Constitutional: no complaints Exam/Review of Systems Exam Vitals Vital Signs Date Temp Pulse Resp B/P (MAP) Pulse Ox O2 O2 Flow FiO2 Time Delivery Rate 06/30/18 98.0 99 18 104/50 99 Nasal 2.0 08:42 (68) Cannula Intake and Output 06/29/18 06/29/18 06/30/18 1414:59 22:59 06:59 IntakeIntake Total 100 ml 1280 ml 700 ml OutputOutput Total 600 ml 530 ml 1890 ml BalanceBalance -500 ml 750 ml -1190 ml Constitutional: alert, oriented Respiratory: clear to auscultation Cardiovascular: regular rate and rhythm Gastrointestinal: soft; No distended Musculoskeletal: No nl extremities to inspection Results Results 24hrs Laboratory Tests Test 06/29/18 15:32 06/30/18 04:47 06/30/18 06:50 Hemoglobin 11.3 L 9.2 L Hematocrit 35.2 L 28.6 L White Blood Count 13.6 #H Red Blood Count 3.11 #L Mean Corpuscular Volume 92.0 Mean Corpuscular Hemoglobin 29.6 Mean Corpuscular 32.2 Hemoglobin Concent Red Cell Distribution Width 13.5 Platelet Count 191 # Mean Platelet Volume 9.8 Immature Granulocytes % 0.600 H Neutrophils % 82.6 H Lymphocytes % 6.6 L Monocytes % 10.1 Eosinophils % 0.0 Basophils % 0.1 Nucleated Red Blood Cells % 0.0 Immature Granulocytes # 0.080 H Neutrophils # 11.2 H Lymphocytes # 0.9 Monocytes # 1.4 H Eosinophils # 0.0 Basophils # 0.0 Nucleated Red Blood Cells # 0.0 Sodium Level 137 Potassium Level 4.9 Chloride Level 104 Carbon Dioxide Level 26 Anion Gap 7 Blood Urea Nitrogen 12 Creatinine 0.73 Est Glomerular Filtrat > 60 Rate mL/min Glucose Level 125 Calcium Level 8.6 Lab Scanned Report REFERENCE LAB Medications Medication Current Medications Morphine Sulfate (morphine) 1 mg Q30MIN PRN IV SEVERE PAIN LEVEL 7-10; Start 06/29/18 at 11:00 Diphenhydramine HCl (Benadryl) 25 mg Q4H PRN IV PRURITUS; Start 06/29/18 at 11:00 Ondansetron HCl (Zofran Inj) 4 mg Q6H PRN IV NAUSEA AND/OR VOMITING; Start 06/29/18 at 11:00 Lactated Ringer's 1,000 ml @ 80 mls/hr [id number] IV Last administered on 06/29/18at 17:45; Admin Dose 80 MLS/HR; Start 06/29/18 at 14:07 IV Flush (NS 3 ml) 3 ml PER PROTOCOL IV ; Start 06/29/18 at 14:30 Oxycodone HCl (Roxicodone) 15 mg Q4H PRN PO .PAIN; Start 06/29/18 at 14:30 Oxycodone HCl (Roxicodone) 10 mg Q4H PRN PO .PAIN Last administered on 06/29/18at 18:48; Admin Dose 10 MG; Start 06/29/18 at 14:30 Oxycodone HCl (Roxicodone) 5 mg Q4H PRN PO .PAIN Last administered on 06/30/18at 08:14; Admin Dose 5 MG; Start 06/29/18 at 14:30 Hydromorphone HCl (Dilaudid) 1 mg Q3H PRN IV .BREAKTHROUGH PAIN; Start 06/29/18 at 14:30 Acetaminophen (Tylenol Tab) 1,000 mg Q8 PO Last administered on 06/30/18at 06:02; Admin Dose 1,000 MG; Start 06/29/18 at 22:00 Ondansetron HCl (Zofran Inj) 4 mg Q4H PRN IV NAUSEA/VOMITING; Start 06/30/18 at 14:30 Vancomycin HCl 250 ml @ 125 mls/hr Q12H IVPB Last administered on 06/30/18at 06:50; Admin Dose 125 MLS/HR; Start 06/29/18 at 18:00 Gabapentin (Neurontin) 300 mg QHS PO Last administered on 06/29/18at 21:48; Admin Dose 300 MG; Start 06/29/18 at 21:00 Pantoprazole (Protonix Tab) 40 mg DAILY@06 PO ; Start 07/01/18 at 06:00 Docusate Sodium (Colace) 200 mg BID PO Last administered on 06/30/18at 08:14; Admin Dose 200 MG; Start 06/30/18 at 09:00; Stop 07/03/18 at 08:59 Simethicone (Mylicon) 80 mg TID PRN PO .GAS; Start 06/29/18 at 14:30 Senna/Docusate Sodium (Senokot-S) 2 tab BID PRN PO .CONSTIPATION; Start 06/29/18 at 14:30 Magnesium Hydroxide (Milk Of Mag) 30 ml HS PRN PO .CONSTIPATION; Start 06/29/18 at 14:30 Bisacodyl (Dulcolax Supp) 10 mg DAILY PRN NV .CONSTIPATION; Start 06/29/18 at 14:30 Sodium Biphosphate/ Sodium Phosphate (Fleet Enema) 133 ml DAILY PRN NV .CONSTI PATION; Start 06/29/18 at 14:30 Diphenhydramine HCl (Benadryl) 25 mg Q4H PRN IV .ITCHING; Start 06/29/18 at 14:30 Naloxone HCl (Narcan) 0.2 mg Q2M PRN IV .RESP RATE; Start 06/29/18 at 14:30 Bethanechol Chloride (Urecholine) 25 mg URINARY CATH D/C PRN PO UNABLE TO VOID Last administered on 06/30/18 06:02; Admin Dose 25 MG; Start 06/29/18 at 14:30 Aspirin (Halfprin) 81 mg BID PO Last administered on 06/30/18 08:14; Admin Dose 81 MG; Start 06/30/18 at 09:00 Piperacillin Sod/ Tazobactam Sod 100 ml @ 200 mls/hr Q8 IVPB Last administered on 06/30/18 06:02; Admin Dose 200 MLS/HR; Start 06/29/18 at 22:00 Cholecalciferol (Vitamin D) 1,000 unit DAILY PO Last administered on 06/30/18 08:14; Admin Dose 1,000 UNIT; Start 06/30/18 at 09:00 Losartan Potassium (Cozaar) 100 mg DAILY PO Last administered on 06/30/18 08:15; Admin Dose 100 MG; Start 06/30/18 at 09:00 Tamsulosin HCl (Flomax) 0.4 mg DAILY@2100 PO Last administered on 06/29/18at 21:48; Admin Dose 0.4 MG; Start 06/29/18 at 21:00 Phenol (Cepastat Lozenge) 1 lozenge Q1H PRN MT SORE THROAT; Start 06/29/18 at 23:30 CHRISTIANO RAYGOZA June 30, 2018 12:27
[2018-06-30] MEDS ORDERED: ONDANSETRON 4 MG INJ IV PRN (14:30)
[2018-06-30] MEDS ORDERED: SOD CHLORIDE 0.9% 500 ML IV ONE (14:30)
[2018-06-30] MEDS: LACTATED RINGER'S 1,000 ML IV SCH (15:07)
[2018-06-30] MEDS ORDERED: SODIUM CHLORIDE 0.9% 1L BAG IV* STA (15:38)
[2018-06-30] MEDS: TAMSULOSIN (SR) 0.4 MG CAP PO SCH (20:12)
[2018-06-30] MEDS: GABAPENTIN 300 MG CAP PO SCH (20:12)
[2018-07-01] MEDS: LACTATED RINGER'S 1,000 ML IV SCH ×2 (01:10→16:07)
[2018-07-01 02:14] VITALS: BP 101/56; PULSE 84; RESP 18
[2018-07-01] MEDS: ACETAMINOPHEN 500 MG TAB PO SCH ×3 (06:08→21:59)
[2018-07-01] MEDS: PIPER-TAZO 3.375 GM IV (PMX) 100 ML IVPB SCH ×3 (06:08→21:59)
[2018-07-01] MEDS: PANTOPRAZOLE (EC) 40 MG TAB PO SCH (06:08)
[2018-07-01] MEDS: VANCOMYCIN 1 GM (PMX) 250 ML IVPB SCH (06:09)
[2018-07-01 07:50] VITALS: BP 94/52; PULSE 70; RESP 18
[2018-07-01] MEDS: oxyCODONE 5 MG TAB PO PRN (07:58)
[2018-07-01] MEDS: LOSARTAN 50 MG TAB PO SCH (08:41)
[2018-07-01] MEDS: ASPIRIN (EC) 81 MG TAB PO SCH ×2 (08:42→21:59)
[2018-07-01] MEDS: DOCUSATE SODIUM 100 MG CAP PO SCH ×2 (08:42→21:59)
[2018-07-01] MEDS: CHOLECALCIFEROL 1,000 UNIT TAB PO SCH (08:42)
[2018-07-01 11:18] VITALS: BP 108/52; PULSE 75; RESP 20
--- NOTE | 2018-07-01 13:16 | PN ---
Date/Time of Note Date/Time of Note DATE: 07/01/18 TIME: 13:15 Assessment/Plan Lines/Catheters IV Catheter Type (from Nrsg): Saline Lock Assessment/Plan Chief Complaint/Hosp Course POD#2 s/p stage I revision for chronically dislocated infected left patient has a static spacer TKA. Patient will need 6 weeks of IV antibiotics and a PICC line. -Post op H&H being closely monitored. We will repeat CBC tomorrow morning -VAC drain: Measurable every 8 hours. Call if over 200 mL's per shift -PT/OT -Joints pain control protocol -DVT prophylaxis: SCD's, ASA 81 mg twice daily x6 weeks -Weight bearing status: partial weightbearing -Knee immobilizer at all times except for dressing changes and hygiene. No range of motion of the knee -Post-op XR ordered -Abx: Continue vancomycin and Zosyn until cultures return -Will consult infectious disease -PICC line ordered -Diet: ADAT -Bobo: DC today -Discharge planning consult Planned Discharge Date: [] Discharge to [] Subjective 24 Hr Interval Summary Patient doing well No acute events overnight Pain is well controlled Exam/Review of Systems Vital Signs Vitals Vital Signs Date Temp Pulse Resp B/P (MAP) Pulse Ox O2 O2 Flow FiO2 Time Delivery Rate 07/01/18 75 20 108/52 98 Room Air 11:18 (70) 07/01/18 97.8 07:50 07/01/18 2.0 02:14 Intake and Output 06/30/18 06/30/18 07/01/18 1515:00 23:00 07:00 IntakeIntake Total 890 ml 1050 ml 720 ml OutputOutput Total 350 ml 1950 ml 560 ml BalanceBalance 540 ml -900 ml 160 ml Exam Free Text/Dictation Left lower extremity: Knee immobilizer in place. Dressing: clean, dry, and intact, no erythema Sensation intact to light touch in a sural, saphenous, deep peroneal, superficial peroneal, medial and lateral plantar nerve distribution. Motor is intact, patient able to dorsiflex and plantarflex ankle and extend and flex great toe. Dorsalis Pedis pulse +2, Brisk capillary refill. Compartments are soft. Calves non-tender to palpation bilaterally. Results Result Diagram: 07/01/18 0449 07/01/18 0449 CHERELLE MERRITT MD July 01, 2018 13:16
[2018-07-01] MEDS ORDERED: LIDOCAINE 1% (MPF) 5 ML VIAL SC ONE (13:30)
[2018-07-01 14:24] VITALS: BP 132/67; PULSE 78; RESP 18
[2018-07-01] MEDS: VANCOMYCIN HCL 1.25 GM in SOD CHLORIDE 0.9% 250 ML IVPB SCH (17:54)
[2018-07-01 19:20] VITALS: BP 115/55; PULSE 79; RESP 18
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
[2018-07-01] MEDS: GABAPENTIN 300 MG CAP PO SCH (21:59)
[2018-07-01] MEDS: TAMSULOSIN (SR) 0.4 MG CAP PO SCH (21:59)
[2018-07-02 02:38] VITALS: BP 118/55; PULSE 83; RESP 18
[2018-07-02] MEDS: PIPER-TAZO 3.375 GM IV (PMX) 100 ML IVPB SCH (05:30)
[2018-07-02] MEDS: VANCOMYCIN HCL 1.25 GM in SOD CHLORIDE 0.9% 250 ML IVPB SCH (06:26)
[2018-07-02] MEDS: ACETAMINOPHEN 500 MG TAB PO SCH ×3 (06:26→22:01)
[2018-07-02] MEDS: PANTOPRAZOLE (EC) 40 MG TAB PO SCH (06:26)
[2018-07-02 07:21] VITALS: BP 128/62; PULSE 64; RESP 18
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
[2018-07-02] MEDS: DOCUSATE SODIUM 100 MG CAP PO SCH ×2 (08:23→21:44)
[2018-07-02] MEDS: ASPIRIN (EC) 81 MG TAB PO SCH ×2 (08:23→21:44)
[2018-07-02] MEDS: CHOLECALCIFEROL 1,000 UNIT TAB PO SCH (08:23)
[2018-07-02 13:33] VITALS: BP 136/63; PULSE 81; RESP 18
[2018-07-02] MEDS: CEFAZOLIN 1 GM/50 ML (PMX) 50 ML IVPB SCH ×2 (14:20→21:51)
--- NOTE | 2018-07-02 15:06 | PN ---
Date/Time of Note Date/Time of Note DATE: 07/02/18 TIME: 15:03 Assessment/Plan Lines/Catheters IV Catheter Type (from Nrsg): Saline Lock Assessment/Plan Chief Complaint/Hosp Course POD#3 s/p stage I revision for chronically dislocated infected left patient has a static spacer TKA. Patient will need 6 weeks of IV antibiotics and a PICC line. -Post op H&H being closely monitored. We will repeat CBC tomorrow morning -VAC drain: Measurable every 8 hours. Call if over 200 mL's per shift -PT/OT -Joints pain control protocol -DVT prophylaxis: SCD's, ASA 81 mg twice daily x6 weeks -Weight bearing status: partial weightbearing -Knee immobilizer at all times except for dressing changes and hygiene. No range of motion of the knee -Post-op XR ordered -Abx: IV Ancef per infectious disease -Is appreciated infectious disease -PICC line ordered -Diet: ADAT -Bobo: DC today -Discharge planning consult Planned Discharge Date: 07/03/2018 versus 07/04/2018 Discharge to SNF Subjective 24 Hr Interval Summary Patient doing well No acute events overnight Pain is well controlled Exam/Review of Systems Vital Signs Vitals Vital Signs Date Temp Pulse Resp B/P (MAP) Pulse Ox O2 O2 Flow FiO2 Time Delivery Rate 07/02/18 98.2 81 18 136/63 98 13:33 (87) 07/01/18 Nasal 2.0 20:23 Cannula Intake and Output 07/01/18 07/01/18 07/02/18 1515:00 23:00 07:00 IntakeIntake Total 1070 ml 550 ml 100 ml OutputOutput Total 1000 ml 1780 ml 945 ml BalanceBalance 70 ml -1230 ml -845 ml Exam Free Text/Dictation Left lower extremity: Knee immobilizer in place Hemovac to self suction Dressing: clean, dry, and intact, no erythema Sensation intact to light touch in a sural, saphenous, deep peroneal, superficial peroneal, medial and lateral plantar nerve distribution. Motor is intact, patient able to dorsiflex and plantarflex ankle and extend and flex great toe. Dorsalis Pedis pulse +2, Brisk capillary refill. Compartments are soft. Calves non-tender to palpation bilaterally. Results Result Diagram: 07/02/18 0438 07/02/18 0438 CHERELLE MERRITT MD July 02, 2018 15:05
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
[2018-07-02 19:20] VITALS: BP 158/70; PULSE 72; RESP 20
[2018-07-02] MEDS: TAMSULOSIN (SR) 0.4 MG CAP PO SCH (21:44)
[2018-07-02] MEDS: GABAPENTIN 300 MG CAP PO SCH (21:44)
[2018-07-03 02:05] VITALS: BP 137/62; PULSE 78; RESP 20
[2018-07-03] MEDS: PANTOPRAZOLE (EC) 40 MG TAB PO SCH (05:39)
[2018-07-03] MEDS: ACETAMINOPHEN 500 MG TAB PO SCH ×3 (05:39→21:38)
[2018-07-03] MEDS: CEFAZOLIN 1 GM/50 ML (PMX) 50 ML IVPB SCH ×3 (05:39→21:38)
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
[2018-07-03 08:25] VITALS: BP 130/62; PULSE 71; RESP 18
[2018-07-03] MEDS: CHOLECALCIFEROL 1,000 UNIT TAB PO SCH (10:00)
[2018-07-03] MEDS: ASPIRIN (EC) 81 MG TAB PO SCH ×2 (10:00→21:38)
--- NOTE | 2018-07-03 10:02 | PN ---
Date/Time of Note Date/Time of Note DATE: 07/03/18 TIME: 10:01 Assessment/Plan Lines/Catheters IV Catheter Type (from Nrsg): PICC Line Bobo in Place (from Nrs): No Assessment/Plan Chief Complaint/Hosp Course POD#4 s/p stage I revision for chronically dislocated infected left patient has a static spacer TKA. Patient will need 6 weeks of IV antibiotics and a PICC line. -Post op H&H being closely monitored. We will repeat CBC tomorrow morning -HEMOVAC drain: Measurable every 8 hours. Call if over 200 mL's per shift. We will likely DC tomorrow. -PT/OT -Joints pain control protocol -DVT prophylaxis: SCD's, ASA 81 mg twice daily x6 weeks -Weight bearing status: partial weightbearing -Knee immobilizer at all times except for dressing changes and hygiene. No range of motion of the knee -Post-op XR ordered -Abx: IV Ancef per infectious disease -Is appreciated infectious disease -PICC line ordered -Diet: ADAT -Bobo: DC today -Discharge planning consult Planned Discharge Date: 07/03/2018 versus 07/04/2018 Discharge to SNF Subjective 24 Hr Interval Summary Patient doing well No acute events overnight Pain is well controlled Exam/Review of Systems Vital Signs Vitals Vital Signs Date Temp Pulse Resp B/P (MAP) Pulse Ox O2 O2 Flow FiO2 Time Delivery Rate 07/03/18 98.4 71 18 130/62 97 08:25 (84) 07/03/18 Room Air 02:05 07/01/18 2.0 20:23 Intake and Output 07/02/18 07/02/18 07/03/18 1515:00 23:00 07:00 IntakeIntake Total 300 ml 1010 ml 540 ml OutputOutput Total 80 ml 600 ml 1560 ml BalanceBalance 220 ml 410 ml -1020 ml Exam Free Text/Dictation Left lower extremity: Knee immobilizer in place. Hemovac self suction. Dressing: clean, dry, and intact, no erythema Sensation intact to light touch in a sural, saphenous, deep peroneal, superficial peroneal, medial and lateral plantar nerve distribution. Motor is intact, patient able to dorsiflex and plantarflex ankle and extend and flex great toe. Dorsalis Pedis pulse +2, Brisk capillary refill. Compartments are soft. Calves non-tender to palpation bilaterally. Results Result Diagram: 07/03/18 0439 07/03/18 0439 CHERELLE MERRITT MD July 03, 2018 10:02
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
[2018-07-03 19:10] VITALS: BP 142/65; PULSE 78; RESP 20
[2018-07-03 20:00] VITALS: BP 126/75; PULSE 74
[2018-07-03] MEDS: GABAPENTIN 300 MG CAP PO SCH (21:38)
[2018-07-03] MEDS: TAMSULOSIN (SR) 0.4 MG CAP PO SCH (21:43)
[2018-07-04 02:05] VITALS: BP 130/59; PULSE 69; RESP 20
[2018-07-04] MEDS: PANTOPRAZOLE (EC) 40 MG TAB PO SCH (06:04)
[2018-07-04] MEDS: ACETAMINOPHEN 500 MG TAB PO SCH ×3 (06:04→22:09)
[2018-07-04] MEDS: CEFAZOLIN 1 GM/50 ML (PMX) 50 ML IVPB SCH ×3 (06:04→22:10)
--- NOTE | 2018-07-04 08:29 | PN ---
Date/Time of Note Date/Time of Note DATE: 07/04/18 TIME: 08:28 Assessment/Plan Lines/Catheters IV Catheter Type (from Nrsg): PICC Line Bobo in Place (from Nrsg): No Assessment/Plan Chief Complaint/Hosp Course POD#5 s/p stage I revision for chronically dislocated infected left patient has a static spacer TKA. Patient will need 6 weeks of IV antibiotics and a PICC line. -Post op H&H being closely monitored. We will repeat CBC tomorrow morning -HEMOVAC drain: DC'd today -PT/OT -Joints pain control protocol -DVT prophylaxis: SCD's, ASA 81 mg twice daily x6 weeks -Weight bearing status: partial weightbearing -Knee immobilizer at all times except for dressing changes and hygiene. No range of motion of the knee -Post-op XR ordered -Abx: IV Ancef per infectious disease -Is appreciated infectious disease -PICC line ordered -Diet: ADAT -Bobo: DC today -Discharge planning consult Planned Discharge Date: Okay to discharge from orthopedic standpoint soon is arrangements have been made for bed placement. Discharge to SNF Subjective 24 Hr Interval Summary Patient doing well No acute events overnight Pain is well controlled Exam/Review of Systems Vital Signs Vitals Vital Signs Date Temp Pulse Resp B/P (MAP) Pulse Ox O2 O2 Flow FiO2 Time Delivery Rate 07/04/18 97.9 69 20 130/59 95 Room Air 02:05 (82) 07/01/18 2.0 20:23 Intake and Output 07/03/18 07/03/18 07/04/18 1515:00 23:00 07:00 IntakeIntake Total 570 ml 1410 ml 300 ml OutputOutput Total 60 ml 30 ml 1050 ml BalanceBalance 510 ml 1380 ml -750 ml Exam Free Text/Dictation Left lower extremity: Dressing: clean, dry, and intact, no erythema Sensation intact to light touch in a sural, saphenous, deep peroneal, super ficial peroneal, medial and lateral plantar nerve distribution. Motor is intact, patient able to dorsiflex and plantarflex ankle and extend and flex great toe. Dorsalis Pedis pulse +2, Brisk capillary refill. Compartments are soft. Calves non-tender to palpation bilaterally. Results Result Diagram: 07/04/18 0431 07/04/18 043 CHERELLE MERRITT MD July 04, 2018 08:29
[2018-07-04 08:33] VITALS: BP 145/67; PULSE 67; RESP 20
[2018-07-04] MEDS: ASPIRIN (EC) 81 MG TAB PO SCH ×2 (08:44→22:09)
[2018-07-04] MEDS: CHOLECALCIFEROL 1,000 UNIT TAB PO SCH (08:44)
[2018-07-04 15:42] VITALS: BP 140/63; PULSE 88; RESP 18
[2018-07-04] MEDS: oxyCODONE 5 MG TAB PO PRN (18:19)
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
[2018-07-04 19:44] VITALS: BP 140/65; PULSE 73; RESP 16
[2018-07-04] MEDS: GABAPENTIN 300 MG CAP PO SCH (22:08)
[2018-07-04] MEDS: TAMSULOSIN (SR) 0.4 MG CAP PO SCH (22:08)
[2018-07-04] MEDS: LOSARTAN 50 MG TAB PO SCH (22:08)
[2018-07-05 01:43] VITALS: BP 140/64; PULSE 70; RESP 18
[2018-07-05] MEDS: CEFAZOLIN 1 GM/50 ML (PMX) 50 ML IVPB SCH ×3 (05:51→21:57)
[2018-07-05] MEDS: ACETAMINOPHEN 500 MG TAB PO SCH ×3 (05:53→22:01)
[2018-07-05] MEDS: PANTOPRAZOLE (EC) 40 MG TAB PO SCH (05:54)
[2018-07-05 07:34] VITALS: BP 131/62; PULSE 72; RESP 19
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
[2018-07-05] MEDS: LOSARTAN 50 MG TAB PO SCH ×2 (08:56→22:02)
[2018-07-05] MEDS: ASPIRIN (EC) 81 MG TAB PO SCH ×2 (08:56→21:57)
[2018-07-05] MEDS: CHOLECALCIFEROL 1,000 UNIT TAB PO SCH (08:56)
--- NOTE | 2018-07-05 14:38 | PN ---
Date/Time of Note Date/Time of Note DATE: 07/05/18 TIME: 14:37 Assessment/Plan Lines/Catheters IV Catheter Type (from Nrsg): PICC Line Bobo in Place (from Nrsg): No Assessment/Plan Chief Complaint/Hosp Course POD#6 s/p stage I revision for chronically dislocated infected left patient has a static spacer TKA. Patient will need 6 weeks of IV antibiotics and a PICC line. -Post op H&H being closely monitored, now stable. -PT/OT -Joints pain control protocol -DVT prophylaxis: SCD's, ASA 81 mg twice daily x6 weeks -Weight bearing status: partial weightbearing -Knee immobilizer at all times except for dressing changes and hygiene. No range of motion of the knee -Post-op XR ordered -Abx: IV Ancef per infectious disease -appreciated infectious disease -PICC line ordered -Diet: ADAT -Discharge planning consult Planned Discharge Date: Okay to discharge from orthopedic standpoint soon is arrangements have been made for bed placement. Discharge to SNF with IV abx and f/u with me in clinic in 2 weeks from surgery. F/u with Dr. Mello also will need to be arranged Subjective 24 Hr Interval Summary Patient doing well No acute events overnight Pain is well controlled Exam/Review of Systems Vital Signs Vitals Vital Signs Date Temp Pulse Resp B/P (MAP) Pulse Ox O2 O2 Flow FiO2 Time Delivery Rate 07/05/18 98.2 72 19 131/62 99 07:34 (85) 07/05/18 Room Air 01:43 07/01/18 2.0 20:23 Intake and Output 07/04/18 07/04/18 07/05/18 1515:00 23:00 07:00 IntakeIntake Total 50 ml 970 ml 450 ml OutputOutput Total 0 ml 1200 ml 800 ml BalanceBalance 50 ml -230 ml -350 ml Exam Free Text/Dictation Left lower extremity: Knee immobilizer in place. Dressing: clean, dry, and intact, no erythema Sensation intact to light touch in a sural, saphenous, deep peroneal, superficial peroneal, medial and lateral plantar nerve distribution. Motor is intact, patient able to dorsiflex and plantarflex ankle and extend and flex great toe. Dorsalis Pedis pulse +2, Brisk capillary refill. Compartments are soft. Calves non-tender to palpation bilaterally. Results Result Diagram: 07/05/18 0507 07/05/18 0455 CHERELLE MERRITT MD July 05, 2018 14:38
[2018-07-05 14:55] VITALS: BP 138/58; PULSE 68; RESP 19
[2018-07-05 19:21] VITALS: BP 142/64; PULSE 80; RESP 18
[2018-07-05] MEDS: GABAPENTIN 300 MG CAP PO SCH (21:57)
[2018-07-05] MEDS: TAMSULOSIN (SR) 0.4 MG CAP PO SCH (22:04)
[2018-07-05 22:05] VITALS: BP_SYST 142; BP_SYST 147; BP_DIAS 64; BP_DIAS 77; PULSE 78; PULSE 80; RESP 17
[2018-07-06 01:20] VITALS: BP 130/60; PULSE 74; RESP 18
[2018-07-06] MEDS: CEFAZOLIN 1 GM/50 ML (PMX) 50 ML IVPB SCH ×3 (05:56→20:46)
[2018-07-06] MEDS: PANTOPRAZOLE (EC) 40 MG TAB PO SCH (05:56)
[2018-07-06] MEDS: ACETAMINOPHEN 500 MG TAB PO SCH ×3 (05:57→20:45)
[2018-07-06 08:23] VITALS: BP 126/63; PULSE 70; RESP 18
[2018-07-06] MEDS: CHOLECALCIFEROL 1,000 UNIT TAB PO SCH (09:08)
[2018-07-06] MEDS: ASPIRIN (EC) 81 MG TAB PO SCH ×2 (09:08→20:43)
[2018-07-06] MEDS: oxyCODONE 5 MG TAB PO PRN ×2 (09:09→15:06)
[2018-07-06] MEDS: LOSARTAN 50 MG TAB PO SCH ×2 (09:09→20:43)
[2018-07-06 15:02] VITALS: BP 104/52; PULSE 83; RESP 18
[2018-07-06 15:23] VITALS: BP 125/82; PULSE 103; RESP 18
[2018-07-06 20:12] VITALS: BP 121/63; PULSE 78; RESP 18
[2018-07-06] MEDS: GABAPENTIN 300 MG CAP PO SCH (20:43)
[2018-07-06] MEDS: TAMSULOSIN (SR) 0.4 MG CAP PO SCH (20:46)
[2018-07-07 01:02] VITALS: BP 125/60; PULSE 75; RESP 18
[2018-07-07] MEDS: ACETAMINOPHEN 500 MG TAB PO SCH ×3 (05:40→21:43)
[2018-07-07] MEDS: PANTOPRAZOLE (EC) 40 MG TAB PO SCH (05:40)
[2018-07-07] MEDS: CEFAZOLIN 1 GM/50 ML (PMX) 50 ML IVPB SCH ×3 (05:40→22:38)
[2018-07-07] MEDS: oxyCODONE 5 MG TAB PO PRN (06:22)
[2018-07-07 07:13] VITALS: BP 112/56; PULSE 72; RESP 18
--- NOTE | 2018-07-07 08:16 | PN ---
Date/Time of Note Date/Time of Note DATE: 07/07/18 TIME: 08:15 Assessment/Plan Lines/Catheters IV Catheter Type (from Nrsg): PICC Line Bobo in Place (from Nrsg): No Assessment/Plan Chief Complaint/Hosp Course POD#8 s/p stage I revision for chronically dislocated infected left patient has a static spacer TKA. Patient will need 6 weeks of IV antibiotics and a PICC line. -Post op H&H being closely monitored, now stable. -PT/OT -Joints pain control protocol -DVT prophylaxis: SCD's, ASA 81 mg twice daily x6 weeks -Weight bearing status: partial weightbearing -Knee immobilizer at all times except for dressing changes and hygiene. No range of motion of the knee -Post-op XR ordered -Abx: IV Ancef per infectious disease -appreciated infectious disease -PICC line ordered -Diet: ADAT -Discharge planning consult Planned Discharge Date: Okay to discharge from orthopedic standpoint soon is arrangements have been made for bed placement. Discharge to SNF with IV abx and f/u with me in clinic in 2 weeks from surgery. F/u with Dr. Mello also will need to be arranged Subjective 24 Hr Interval Summary Patient doing well No acute events overnight Pain is well controlled Exam/Review of Systems Vital Signs Vitals Vital Signs Date Temp Pulse Resp B/P (MAP) Pulse Ox O2 O2 Flow FiO2 Time Delivery Rate 07/07/18 97.6 72 18 112/56 97 07:13 (74) 07/07/18 Room Air 01:02 Intake and Output 07/06/18 07/06/18 07/07/18 1515:00 23:00 07:00 IntakeIntake Total 360 ml 780 ml 600 ml OutputOutput Total 850 ml 300 ml 1850 ml BalanceBalance -490 ml 480 ml -1250 ml Exam Free Text/Dictation Left lower extremity: Knee immobilizer in place. Dressing: clean, dry, and intact, no erythema Sensation intact to light touch in a sural, saphenous, deep peroneal, superficial peroneal, medial and lateral plantar nerve distribution. Motor is intact, patient able to dorsiflex and plantarflex ankle and extend and flex great toe. Dorsalis Pedis pulse +2, Brisk capillary refill. Compartments are soft. Calves non-tender to palpation bilaterally. Results Result Diagram: 07/06/18 0430 07/06/18 0430 CHERELLE MERRITT MD July 07, 2018 08:16
[2018-07-07] MEDS: CHOLECALCIFEROL 1,000 UNIT TAB PO SCH (09:09)
[2018-07-07] MEDS: ASPIRIN (EC) 81 MG TAB PO SCH ×2 (09:09→20:43)
[2018-07-07] MEDS: LOSARTAN 50 MG TAB PO SCH ×2 (09:10→20:42)
[2018-07-07 14:59] VITALS: BP 108/58; PULSE 86; RESP 18
[2018-07-07 19:20] VITALS: BP 131/59; PULSE 77; RESP 20
[2018-07-07] MEDS: GABAPENTIN 300 MG CAP PO SCH (20:41)
[2018-07-07] MEDS: TAMSULOSIN (SR) 0.4 MG CAP PO SCH (20:46)
[2018-07-08 02:26] VITALS: BP 143/65; PULSE 78; RESP 18
[2018-07-08] MEDS: PANTOPRAZOLE (EC) 40 MG TAB PO SCH (05:07)
[2018-07-08] MEDS: CEFAZOLIN 1 GM/50 ML (PMX) 50 ML IVPB SCH ×2 (05:09→14:33)
[2018-07-08] MEDS: ACETAMINOPHEN 500 MG TAB PO SCH ×2 (05:39→14:33)
[2018-07-08 07:18] VITALS: BP 116/55; PULSE 73; RESP 18
[2018-07-08] MEDS: LOSARTAN 50 MG TAB PO SCH (09:18)
[2018-07-08] MEDS: CHOLECALCIFEROL 1,000 UNIT TAB PO SCH (09:18)
[2018-07-08] MEDS: ASPIRIN (EC) 81 MG TAB PO SCH (09:18)
[2018-07-08] MEDS: oxyCODONE 5 MG TAB PO PRN (09:21)
[2018-07-08 15:24] VITALS: BP 119/66; PULSE 76; RESP 18
== END 2018-07-08 19:05 | DRG 464 ==
LOC: REC 05:53 → MS1 17:00
PROVIDERS: ADMIT Orthopaedic Surgery Adult Reconstructive Orthopaedic Surgery; ATTEND Orthopaedic Surgery Adult Reconstructive Orthopaedic Surgery
PROC: 0SHD08Z Insertion of Spacer into Left Knee Joint, Open Approach (ICD-10-PCS; 2018-06-29)
PROC: 0QNF0ZZ Release Left Patella, Open Approach (ICD-10-PCS; 2018-06-29)
PROC: 0SPD0JZ Removal of Synthetic Substitute from Left Knee Joint, Open Approach (ICD-10-PCS; principal; 2018-06-29 07:30)
PROC: 02HV33Z Insertion of Infusion Device into Superior Vena Cava, Percutaneous Approach (ICD-10-PCS; 2018-07-02)
DX: T84.54XA Infection and inflammatory reaction due to internal left knee prosthesis, initial encounter (principal); M00.062 Staphylococcal arthritis, left knee; T84.023A Instability of internal left knee prosthesis, initial encounter; B95.61 Methicillin susceptible Staphylococcus aureus infection as the cause of diseases classified elsewhere; I10 Essential (primary) hypertension; I95.9 Hypotension, unspecified; N40.0 Benign prostatic hyperplasia without lower urinary tract symptoms; R53.81 Other malaise; Y83.8 Other surgical procedures as the cause of abnormal reaction of the patient, or of later complication, without mention of misadventure at the time of the procedure; Z87.891 Personal history of nicotine dependence
CPT/HCPCS: 36569; 71045; 73560; 76937; 80048; 80202; 83605; 85014; 85018; 85025; 85651; 86140; 86850; 86900; 86901; 86920; 87070; 87075; 87086; 87102; 87116; 88304; 88311; 97110; 97116; 97162; 97165; 97530; 97535; C1713; J0690; J1100; J1170; J1200; J2001; J2250; J2274; J2405; J2543; J3010; J3370; J7030; J7040; J7050; J7120; P9045; Q9968